=== PATIENT | female | born 1995 | race Caucasian/White ===

== ENCOUNTER 2025-04-19 15:54 | Emergency (ER) | payer SELFPAY ==
[2025-04-19 15:56] VITALS: BP 174/118; PULSE 77; RESP 16; TEMP 36.6; O2SAT 99; BMI 34.2
--- NOTE | 2025-04-19 16:07 | EX.ED.DYSGE1 ---
HPI History of Present Illness Chief Complaint: Suicidal [facility] Medical History (Updated 04/19/25 @ 16:10 by Traci Toscano) Anxiety Depression Allergy/AdvReac Type Severity Reaction Status Date / Time No Known Allergies Allergy Verified 04/19/25 16:00 Social History Smoking Status: Current every day smoker tobacco type: cigarettes EXAM Physical Exam Const Vital Signs: 04/19/25 15:56 04/19/25 17:00 Temperature 98 F Temperature Source Oral Pulse Rate 77 74 Respiratory Rate 16 18 Blood Pressure 174/118 H 120/90 H Blood Pressure Mean 136 100 Pulse Ox 99 98 Oxygen Delivery Method Room Air Room Air [facility] MDM Narrative Medical decision making narrative: HISTORY OF PRESENT ILLNESS: Chief complaint: Suicidal ideation 29-year-old female history of depression presents with suicidal ideation. No she is been depressed, she thinks may have mood disorder. Per chart Has a plan that she would drive her car into the [place] and disappear. Per patient she is unsure if she wants herself. REVIEW OF SYSTEMS: Pertinent positives: Suicidal ideation Pertinent negatives: Physical complaints, homeless ideation, auditory visual hallucinations PHYSICAL EXAM: Nursing triage notes reviewed, Vital signs reviewed Constitutional: please see mdm HENT: MMM Eyes: Pupils equal round and reactive to light, Extraocular muscles intact Neck: No stridor, no JVD, full neck ROM Lungs: Clear to auscultation, No wheezing or rales. No increased work of breathing, no conversational dyspnea, no accessory muscle use, no nasal flaring. No respiratory distress noted Heart: Regular rate and rhythm, No murmurs, No rubs and No gallops, 2+ distal pulses (radial, femoral, posterior tibial) in all extremities Abdomen: Soft, there is no tenderness, rigidity, rebound or guarding, no obvious peritoneal signs, no palpable pulsatile abdominal masses, no auscultated abdominal bruit : No CVAT Extremities: No edema Neuro: No new focal neurological deficits, cranial nerves II through XII intact, 5/5 strength in all present extremities. Intact sensation to light touch in all present extremities, 2+ reflexes bilateral patella tendons. Skin: No rash or lesions noted Psych: Normal affect, goal-directed thought process, not responding to internal stimuli. MEDICAL DECISION MAKING: Chief Complaint: please see HPI External records reviewed: Reviewed prior notes Factors affecting care: Depression, mood disorder Social determinants of health: no history of psychiatric disorder, no health insurance History obtained from others: none Consults: Discusssed with Behavioral Health Social Work - Safety plan MDM Narrative: The patient was initially hypertensive with a blood pressure 174/118 otherwise afebrile nontoxic. ALL IMAGES (IF OBTAINED) HAVE BEEN PERSONALLY REVIEWED AND INTERPRETED BY MYSELF. Patient was medically cleared. CBC, CMP, urine tox screen and serum alcohol were negative. Urine is also negative Discussed with behavioral social services analyst Repeat BP improved to 120/90 patient is appropriate for safety plan per behavioral social services analyst The patient and/or family, caregivers express understanding. The patient and/or family, caregivers agrees with the plan. Shared decision making: I will have a discussion with the patient and or visitors regarding risk/benefits of further testing or admission. They will be made aware of of the risk/benefits inherent in this decision they will be given the opportunity to voice understanding. Total critical care time today provided was at least 0 minutes. This excludes separately billable procedures. Critical care time (if documented) is secondary to the patient having high probability of clinically significant/life threatening deterioration in the patient's condition which required my urgent intervention. Impression: 1. Suicidal Ideation 2. History of depression Dispo: discharge home This note was generated with [employer] dictation software. It may contain incorrect words, spelling, and punctuation that were not noted in review of the chart prior to signing. Lab Data Labs: Laboratory Results - last 24 hr 04/19/25 16:49 WBC 9.9 RBC 5.18 Hgb 14.6 Hct 43.3 MCV 83.6 MCH 28.2 MCHC 33.7 RDW Std Deviation 37.9 RDW Coeff of Yen 12.5 Plt Count 277 MPV 11.2 Immature Gran % (Auto) 0.300 Neut % (Auto) 73.1 H Lymph % (Auto) 17.7 L Greene % (Auto) 6.2 Eos % (Auto) 2.0 Baso % (Auto) 0.7 Absolute Neuts (auto) 7.2 Absolute Lymphs (auto) 1.75 Nucleated RBC % 0 Sodium 140 Potassium 3.8 Chloride 104 Carbon Dioxide 21.5 Anion Gap 14 BUN 10 Creatinine 0.66 L Estim Creat Clear Calc 162.37 Est GFR (MDRD) Non-Af 122 BUN/Creatinine Ratio 14.7 Glucose 93 Calcium 9.6 Serum , Qual NEGATIVE Urine Opiates Screen NEGATIVE U Buprenorphine Qual NEGATIVE Ur Oxycodone Screen NEGATIVE Urine Methadone Screen NEGATIVE Urine Fentanyl Screen NEGATIVE Ur Barbiturates Screen NEGATIVE Ur Phencyclidine Scrn NEGATIVE Ur Amphetamines Screen NEGATIVE U Benzodiazepines Scrn NEGATIVE Urine Cocaine Screen NEGATIVE U Cannabinoids Screen NEGATIVE Ethyl Alcohol < 10.1 Discharge Plan Triage Chief Complaint: Suicidal ED Provider: Ok Danielle Dx/Rx/DC Orders Primary Care Provider: Care Physician,No Primary Referrals: Care Physician,No Primary [Primary Care Provider] - Print Language: Moldovan
[2025-04-19 17:00] VITALS: BP 120/90; PULSE 74; RESP 18; O2SAT 98
[2025-04-19 17:11] LABS: Absolute Lymphocyte Count 1.75 X10^3/uL (0.83-4.51); Absolute Neutrophil Count 7.2 X10^3/uL (2.0-7.7); Basophil# 0.07 X10^3/uL; Basophil% 0.7 % (0-1); Hematocrit 43.3 % (37-47); Hemoglobin 14.6 g/dL (12.0-15.0); Lymphocyte # 1.75 X10^3/ul (0.83-4.51); Lymphocyte % 17.7 % (19-41); Mean Corp Hgb Conc 33.7 g/dL (32-36); Mean Corpuscular Hgb 28.2 pg (27.0-32.0); Mean Corpuscular Volume 83.6 fL (81-99); Mean Platelet Vol. 11.2 fl (6.2-12.0); Monocyte# 0.61 X10^3/uL; Monocyte% 6.2 % (0-10); NRBC Flagged by Analyzer 0 % (0-5); Neutrophil # 7.23 X10^3/uL (2.7-7.7); Neutrophil % 73.1 % (47-70); Platelet Count 277 K/mm3 (150-450); RBC Distribution Width CV 12.5 % (11.6-14.6); RBC Distribution Width SD 37.9 fl (35.1-43.9); Red Blood Count 5.18 M/mm3 (4.2-5.4); White Blood Count 9.9 K/mm3 (4.4-11.0)
[2025-04-19 17:24] LABS: Alcohol, Blood (Medical)-Serum < 10.1 mg/dL (<=10.0)
[2025-04-19 17:25] LABS: Anion Gap 14 (5-15); BUN 10 mg/dL (4-19); BUN/Creat Ratio 14.7 RATIO (10-20); Calcium,Total 9.6 mg/dL (7.6-11.0); Carbon Dioxide 21.5 mmol/L (21.0-32.0); Chloride 104 mmol/L (98-108); Creatinine, Serum 0.66 mg/dL (0.70-1.20); EST Glomerular Filtration Rate 122 (>60); Estimated Creatinine Clearance 162.37 ml/min (50-250); Glucose 93 mg/dL (70-99); Potassium 3.8 mmol/L (3.3-5.1); Sodium Level 140 mmol/L (133-145)
[2025-04-19 17:31] LABS: Internal QC Validated? YES +Cl - CLEAR BKGD; Pregnancy, Serum, hCG Quali. NEGATIVE Negative; Record Kit Lot#, Serum Preg. 947241
[2025-04-19 17:33] LABS: Amphetamine Urine NEGATIVE (<1000 ng/mL); Barbiturate Urine NEGATIVE (< 200 ng/mL); Benzodiazepine Urine NEGATIVE (< 200 ng/mL); Buprenorphine Urine NEGATIVE (< 200 ng/mL); Cocaine Urine NEGATIVE (< 300 ng/mL); Fentanyl, Urine NEGATIVE; Methadone Urine NEGATIVE (< 300 ng/mL); Opiates Urine NEGATIVE (< 300 ng/mL); Oxycodone, Urine NEGATIVE (< 100 ng/mL); PCP Urine NEGATIVE (< 25 ng/mL); THC Urine NEGATIVE (< 50 ng/mL)
--- NOTE | 2025-04-19 17:49 | PCA ---
FAXED EVERYTHING OVER TO [facility] AND CALLED THEM 1740. NO WILL BE OUT TO ASSESS
--- NOTE | 2025-04-19 19:45 | CM.ED ---
Social work 1720: ARIELLE approached by Diana with [facility] Registration asking if patient's name was spelled correctly due to patient not being forthcoming with Diana and not being able to verify insurance. SW called [facility] who had sent in patient for suicidal statements (ph: [phone]) and spoke with Patricia. Patricia provided patient's name spelled correctly and SW passed this along to Diana. Per Diana, patient has had Medicaid in the past, but reported it to be inactive at this point in time. Due to this, [facility] assessed for mental health due to patient being self-pay status. 1910: Charanjit from [facility] approached this SW stating ability to safety plan with patient, but stated patient's need for a ride back to [facility] due to patient's ride to [facility] ED being via EMS. Reportedly, patient had car keys, but patient's wallet and phone were back in patient's car at [facility]. SW called [facility], speaking with Emiliana, requesting information on patient's emergency contacts there in order to help patient call someone for a ride. Patient's sisters are reportedly [employer] still and patient is the only one in the family who is ex-[employer]. Patient was provided with patient's sister (Annette) and brother in law's ([place]) work number (ph: [phone]) which would not work for this evening. SW was also provided a number for a local intermodal truck driver that patient reportedly approved 6 years ago when patient was still [employer]; [employer] (ph: [phone]). ARIELLE also received via email a list of [employer] drivers that [facility] will sometimes use if unable to find rides for patients. SW to ask patient was open to calling anyone to come get patient from the hospital. When ARIELLE walked up to patient's room, nursing had just set up a taxi ride for patient to get back to [facility]. No follow up needed from ARIELLE. Elvia [place], [employer] AP[employer]ENTICE, DIVISION SUPERVISOR
[2025-04-19 20:01] VITALS: BP 135/87; PULSE 95; RESP 18; TEMP 36.1; O2SAT 99
== END 2025-04-19 20:03 | disposition home or self-care (01) ==
PROVIDERS: Emergency Provider Emergency Medicine; Visit Provider Emergency Medicine
DX: R45.851 Suicidal ideations (principal); F32.A Depression, unspecified; F17.210 Nicotine dependence, cigarettes, uncomplicated
CPT/HCPCS: 36415; 80048; 80307; 82077; 84703; 85025; 99285

== ENCOUNTER 2025-05-06 00:09 | Emergency (ER) | payer SELFPAY ==
[2025-05-06 00:11] VITALS: BP 128/100; PULSE 103; RESP 26; TEMP 36.3; O2SAT 94; BMI 34.7
[2025-05-06] MEDS: Ondansetron 4 MG/2 ML Vial IV (00:25)
[2025-05-06] MEDS: 0.9% Normal Saline (1000mL) 1,000 ML 999 ML IV ×2 (00:25→01:00)
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
--- NOTE | 2025-05-06 00:50 | EDS_ITS ---
HPI History of Present Illness Chief Complaint: Anxiety Informant: patient and EMS Narrative Narrative: Patient is a 29-year-old female with history of anxiety. Reportedly this evening she did synthetic marijuana and then began to have bouts of nausea and vomiting which worsened her anxiety. She contacted crisis center because she did not know who else to call. Crisis center then contacted EMS so that she be brought to the hospital for evaluation. The patient denies any homicidal or suicidal ideation but based on her intractable nausea and vomiting which has now worsened her anxiety she presents to the ER for evaluation. [facility] Medical History (Updated 05/06/25 @ 07:[address] Monster Hernandez, DO) Anxiety Depression Allergy/AdvReac Type Severity Reaction Status Date / Time No Known Allergies Allergy Verified 05/06/25 00:14 Social History Smoking Status: Current every day smoker tobacco type: cigarettes ROS ROS ED Constitutional Constitutional ED: Denies chills or fever(s) Eyes Eyes: Denies change in vision ENT ENT ED: Denies sore throat Cardiovascular Cardiovascular: Reports palpitations and racing heartbeat; Denies chest pain Respiratory/Chest Respiratory/Chest: Denies cough or dyspnea Gastrointestinal Gastrointestinal: Reports nausea and vomiting; Denies abdominal pain or diarrhea Genitourinary Genitourinary ED: Denies dysuria Musculoskeletal Musculoskeletal: Denies myalgias Integumentary Denies rash Neurologic Neurologic: Denies headache(s) Psychiatric Psychiatric: Reports anxiety and depression; Denies suicidal ideation or suicidal thoughts Hematologic/Lymphatic Hematologic/Lymphatic: Denies easy bleeding or easy bruising EXAM Physical Exam Const Vital Signs: 05/06/25 00:11 05/06/25 06:04 Temperature 97.3 F L Temperature Source Temporal Pulse Rate 103 H 92 Respiratory Rate 26 H 14 Blood Pressure 128/100 H 126/67 H Blood Pressure Mean 109 86 Pulse Ox 94 98 Oxygen Delivery Method Room Air Room Air Positive well nourished, well developed and obese General Appearance ED: well developed; Negative for pallor Nutritional Appearance: obese HEENT Reports moist mucous membranes HEENT Narrative: Normocephalic atraumatic No tongue or lip swelling no oral lesions no airway edema or compromise No secondary findings in the posterior pharynx to suggest infection Eyes EOMs intact bilaterally Eyes Narrative: Pupils are dilated and sluggish to respond to light consistent with synthetic marijuana use. General Eye ED: Negative for scleral icterus Neck supple Neck Narrative: No nuchal rigidity or meningeal signs Resp normal respiratory effort and clear to auscultation bilaterally Cardio regular rhythm Rate: tachycardic and other Other Details: Tachycardic rate with regular rhythm Radial and carotid pulses are equal and symmetric No murmurs rubs or gallops GI non-tender, non-distended and no masses GI Narrative: Abdomen is soft nontender nondistended with hyperactive bowel sounds No voluntary guarding or rigidity or pulsatile mass Auscultation: hyperactive bowel sounds Palpation: soft Extremity normal to inspection Neuro oriented x3 and CN's II-XII intact bilaterally Sensorium / Orientation: alert Psych Psych Narrative: No homicidal or suicidal ideation Mood & Affect: anxious and tearful Skin no rashes or lesions noted and no wounds General Skin Exam: Negative for jaundice or pallor MDM MDM MDM Narrative Medical decision making narrative: Patient arrived to the ER hypertensive and tachycardic but was visibly anxious. According to EMS and crisis center she did synthetic marijuana but not in an attempt to hurt herself and after doing this had increased anxiety and he developed bouts of nausea and vomiting. She does not have homicidal or suicidal ideation and therefore there is no need for a psychiatric evaluation. Based on the synthetic marijuana use there is concern for potential toxic ingestion and therefore aspirin Tylenol and alcohol levels were obtained. With the recurrent bouts of nausea and vomiting patient could also have acute kidney injury or clinically significant electrolyte abnormality. Basic blood work was obtained and patient was given IV fluids as well as Compazine and Benadryl. This reduced her nausea and vomiting and improved her vitals as well. She was watched in the ER for multiple hours until her symptoms resolved and the synthetic marijuana wore off. Following this she is not homicidal or suicidal and therefore with stable vitals and negative workup and resolution of symptoms there is no need for further evaluation and she is otherwise safe for discharge History & Record Review Discussion w/independent historian: EMS personnel and Patient Lab Data Attestation: I reviewed the patient's lab results. Labs: Laboratory Results - last 24 hr 05/06/25 00:25 Sodium 139 Potassium 3.7 Chloride 104 Carbon Dioxide 20.9 L Anion Gap 14 BUN 13 Creatinine 0.77 Estim Creat Clear Calc 137.61 Est GFR (MDRD) Non-Af 107 BUN/Creatinine Ratio 17.1 Glucose 139 H Calcium 9.3 Total Bilirubin 0.24 Direct Bilirubin < 0.08 AST 21 ALT 22 Alkaline Phosphatase 65 Total Protein 7.1 Albumin 4.4 Globulin 2.7 Lipase 29 Salicylates < 0.5 L Acetaminophen < 5.0 L Ethyl Alcohol < 10.1 Discharge Plan Triage Chief Complaint: Anxiety ED Provider: Monster Hernandez Dx/Rx/DC Orders Clinical Impression: Nausea & vomiting, Adverse drug effect, Anxiety Instructions: Understanding Synthetic Marijuana, ED Anxiety Reaction, ED Vomiting (Adult) Primary Care Provider: Care Physician,No Primary Referrals: Coy Houston MD [Med Staff - Active Staff] - Care Physician,No Primary [Primary Care Provider] - Print Language: [place] Disposition Disposition: Home, Self Care Discharge Date/Time: 05/06/25 07:29
[2025-05-06] MEDS: DIPHENHYDRAMINE IV (01:00)
[2025-05-06] MEDS: CHLORPROMAZINE IV (01:00)
[2025-05-06] MEDS: NORMAL SALINE 0.9% IV (01:00)
[2025-05-06] MEDS: Famotidine 200 MG/20 ML MDV 20 MG in 0.9% Normal Saline (Pres. free 8 ML 300 MG IV (01:00)
[2025-05-06 05:28] LABS: AST(SGOT) 21 U/L (<=31); Acetaminophen (Tylenol) Level < 5.0 ug/mL (8.0-19.0); Alanine Aminotransfer ALT/SGPT 22 U/L (<=34); Albumin, Serum 4.4 g/dL (3.5-5.0); Alcohol, Blood (Medical)-Serum < 10.1 mg/dL (<=10.0); Alkaline Phosphatase 65 U/L (35-104); Anion Gap 14 (5-15); BUN 13 mg/dL (4-19); BUN/Creat Ratio 17.1 RATIO (10-20); Bilirubin, Direct < 0.08 mg/dL (0.00-0.30); Calcium,Total 9.3 mg/dL (7.6-11.0); Carbon Dioxide 20.9 mmol/L (21.0-32.0); Chloride 104 mmol/L (98-108); Creatinine, Serum 0.77 mg/dL (0.70-1.20); EST Glomerular Filtration Rate 107 (>60); Estimated Creatinine Clearance 137.61 ml/min (50-250); Globulin 2.7 g/dL (2.2-4.2); Glucose 139 mg/dL (70-99); Lipase 29 U/L (13-75); Potassium 3.7 mmol/L (3.3-5.1); Protein, Total 7.1 g/dL (5.9-8.4); Salicylate < 0.5 mg/dL (2.8-20.0); Sodium Level 139 mmol/L (133-145); Total Bilirubin 0.24 mg/dL (0.00-1.30)
--- NOTE | 2025-05-06 05:58 | ED.RN ---
See downtime charting.
[2025-05-06 06:04] VITALS: BP 126/67; PULSE 92; RESP 14; O2SAT 98
[2025-05-06 07:22] LABS: Internal QC Validated? YES +Cl - CLEAR BKGD; Pregnancy, Serum, hCG Quali. NEGATIVE Negative
[2025-05-06 07:28] VITALS: BP 116/61; PULSE 88; RESP 11; TEMP 37.1; O2SAT 100
[2025-05-06 07:36] LABS: Absolute Lymphocyte Count 3.32 X10^3/uL (0.83-4.51); Absolute Neutrophil Count 6.9 X10^3/uL (2.0-7.7); Basophil# 0.07 X10^3/uL; Basophil% 0.6 % (0-1); Eosinophil# 0.26 X10^3/uL; Eosinophils% 2.3 % (0-5); Hematocrit 38.2 % (37-47); Hemoglobin 12.8 g/dL (12.0-15.0); Lymphocyte # 3.32 X10^3/ul (0.83-4.51); Mean Corp Hgb Conc 33.5 g/dL (32-36); Mean Corpuscular Hgb 28.1 pg (27.0-32.0); Mean Corpuscular Volume 83.8 fL (81-99); Mean Platelet Vol. 11.3 fl (6.2-12.0); Monocyte# 0.89 X10^3/uL; Monocyte% 7.8 % (0-10); NRBC Flagged by Analyzer 0 % (0-5); Neutrophil # 6.88 X10^3/uL (2.7-7.7); Platelet Count 272 K/mm3 (150-450); RBC Distribution Width CV 12.6 % (11.6-14.6); RBC Distribution Width SD 38.3 fl (35.1-43.9); Red Blood Count 4.56 M/mm3 (4.2-5.4); White Blood Count 11.5 K/mm3 (4.4-11.0)
== END 2025-05-06 07:29 | disposition home or self-care (01) ==
PROVIDERS: Emergency Provider Emergency Medicine; Visit Provider Emergency Medicine
DX: R11.2 Nausea with vomiting, unspecified (principal); T40.715A Adverse effect of cannabis, initial encounter; F41.9 Anxiety disorder, unspecified; F17.210 Nicotine dependence, cigarettes, uncomplicated; F12.90 Cannabis use, unspecified, uncomplicated; E66.9 Obesity, unspecified
CPT/HCPCS: 80048; 80076; 80143; 80179; 82077; 83690; 84703; 85025; 96365; 96375; 96376; 99285; A4216; J2405